=== PATIENT | female | born 1985 | race Caucasian/White ===

== ENCOUNTER 2016-09-06 17:02 | Emergency (ER) | payer SELFPAY ==
[~2016-09-06] VITALS: Ht 162.6 cm; Wt 70.0 kg
[2016-09-06 17:37] VITALS: BP 141/81
== END 2016-09-06 23:54 | disposition home or self-care (01) ==
LOC: ER 18:00
DX: R13.10 Dysphagia, unspecified (principal); T17.208A Unspecified foreign body in pharynx causing other injury, initial encounter; R07.0 Pain in throat; I10 Essential (primary) hypertension; X58.XXXA Exposure to other specified factors, initial encounter; Y93.89 Activity, other specified; Y92.89 Other specified places as the place of occurrence of the external cause; Y99.8 Other external cause status
CPT/HCPCS: 70360; 70490; 71010; 81025; 99284

== ENCOUNTER 2016-09-12 19:03 | Emergency (ER) | payer SELFPAY ==
[~2016-09-12] VITALS: Ht 154.9 cm; Wt 68.0 kg
[2016-09-12] MEDS ORDERED: KETOROLAC 30MG/ML VIAL IV ONE (20:45)
[2016-09-12] MEDS ORDERED: KETOROLAC 30MG/ML VIAL IM ONE (20:45)
[2016-09-12 22:20] VITALS: BP 126/77
== END 2016-09-12 22:39 | disposition home or self-care (01) ==
LOC: ER 19:07
DX: S16.1XXA Strain of muscle, fascia and tendon at neck level, initial encounter (principal); I10 Essential (primary) hypertension; V49.9XXA Car occupant (driver) (passenger) injured in unspecified traffic accident, initial encounter; Y93.89 Activity, other specified; Y92.89 Other specified places as the place of occurrence of the external cause; Y99.8 Other external cause status
CPT/HCPCS: 72040; 81025; 96374; 99284; J1885